=== PATIENT | male | born 1945 | race Caucasian/White ===

== ENCOUNTER 2018-04-16 12:02 | Inpatient (IN) ==
[2018-04-16] MEDS ORDERED: MORPHINE 4 MG/1 ML VIAL IV PRN (22:14)
[2018-04-16] MEDS ORDERED: DEXTROSE 50% 25 GM/50 ML SYRINGE IV PRN (22:14)
[2018-04-16] MEDS ORDERED: GLUCAGON 1 MG VIAL IM PRN (22:14)
[2018-04-16] MEDS ORDERED: ONDANSETRON 4 MG/2 ML VIAL IV PRN (22:14)
[2018-04-16] MEDS ORDERED: ACETAMINOPHEN 325 MG TABLET PO PRN (22:14)
[2018-04-16 23:20] LABS: Basophils # 0.1 10*3/uL (0.0-0.2); Basophils % 0.2 % (0.0-0.8); Eosinophils # 0.1 10*3/uL (0.0-0.87); Eosinophils % 0.2 % (0.00-10.9); Hematocrit 36.2 VOL% (42.0-52.0); Hemoglobin 11.5 GM/DL (14.0-18.0); Immature Granulocytes % 2.4 %; Immature Granulocytes Absolute 0.52 #; Lymphocytes % 4.5 % (21.2-54.2); Mean Corpuscular HGB Conc 31.8 GM/DL (32-36); Mean Corpuscular Hemoglobin 31 PG (27-34); Mean Platelet Volume 11.5 FL (9.6-12.0); Monocytes # 1.5 10*3/uL (0.11-0.8); Monocytes % 6.6 % (1.7-12.7); Neutrophils # 18.8 10*3/uL (1.4-7.4); Neutrophils % 86.1 % (38.7-73.9); Platelet Count 295 T/CUMM (130-400); Red Blood Count 3.77 MC/CUMM (3.8-5.5); Red Cell Distribution Width 14.8 % (9.3-17.3); White Blood Count 21.9 T/CUMM (4-12)
[2018-04-16 23:29] LABS: INR 1.1; PT Patient Result 11.4 SECS; Partial Thromboplastin Time 29.6 SECS (0-40)
[2018-04-16 23:46] LABS: Lymphocytes 3 % (20-55); Segmented Neutrophils 85 % (50-85)
[2018-04-16 23:47] LABS: Albumin 2.5 G/DL (3.4-5.0); Bilirubin,Total 0.8 MG/DL (0.2-1.0); Calcium 8.5 MG/DL (8.5-10.1); Osmolality,Calculated 297.4 MOS/KG (273-304); Potassium 4.4 MMOL/L (3.5-5.1); Total Protein 6.7 G/DL (6.4-8.3)
[2018-04-16 23:49] LABS: Platelet Estimate Normal
[2018-04-16 23:50] LABS: Total Cells Counted 100
[2018-04-17] LABS: Amylase 83 U/L (25-115)
[2018-04-17 00:02] LABS: Troponin I 0.133 NG/ML (0.00-0.045)
[2018-04-17] MEDS: SODIUM CHLORIDE 0.9% 1,000 ML IV SCH ×2 (00:16→12:59)
[2018-04-17] MEDS: LEVOFLOXACIN INJ 750 MG in PREMIX 1 EACH IV SCH ×2 (00:16→23:50)
[2018-04-17] MEDS: ALBUTEROL/IPRATROPIUM 3 ML NEB RESP TX SCH ×7 (00:28→22:26)
[2018-04-17] MEDS: INSULIN REGULAR 100 UNIT/ML SUBCUT SCH ×4 (01:18→18:16)
[2018-04-17 05:06] LABS: Troponin I 0.144 NG/ML (0.00-0.045)
[2018-04-17] MEDS: ENOXAPARIN 40 MG/0.4 ML SYRINGE SUBCUT SCH (09:52)
[2018-04-17 11:26] LABS: Allen Test Positive
[2018-04-17 11:27] LABS: ABG Base Excess 0.3 MMOL/L (-2.5-2.5); ABG HCO3 24.6 MMOL/L (20-26); ABG Oxygen Saturation 95.2 % (95-100); ABG PCO2 38.4 MM HG (35-48); ABG PH 7.415 (7.35-7.45); ABG PO2 76.8 MM HG (80-95); ABG TCO2 21.7 MMOL/L (23-27)
[2018-04-17 11:59] LABS: Apearance,Urine CLEAR (Clear); Bilirubin,Urine Negative (Negative); Blood, Urine Moderate mg/dL (Negative); Glucose,Urine (UA) >=500 mg/dL (Negative); Ketones,Urine 5 mg/dL (Negative); Nitrite,Urine Negative (Negative); Protein,Urine 100 MG/DL; RBC,Urine 1 /HPF (0-4); Urine Color Yellow (Yellow); Urine Specific Gravity 1.032 (1.001-1.035); Urine Urobilinogen < 2.0 EU/DL (0.2-1.0); WBC,Urine <1 /HPF (0-6)
[2018-04-17] MEDS: ASPIRIN 300 MG SUPP RECTAL SCH (12:45)
[2018-04-17] MEDS: methylPREDNISolone SOD SUC 40 MG/1 ML VIAL IV SCH ×2 (12:46→18:17)
[2018-04-17] MEDS: METOPROLOL TARTRATE 5 MG/5 ML VIAL IV SCH ×3 (12:46→18:17)
[2018-04-17] MEDS: INSULIN GLARGINE 100 UNIT/ML SUBCUT SCH ×2 (18:15→22:18)
[2018-04-17] MEDS: PANTOPRAZOLE 40 MG VIAL IV SCH (22:15)
[2018-04-18] MEDS: METOPROLOL TARTRATE 5 MG/5 ML VIAL IV SCH ×4 (01:10→17:55)
[2018-04-18] MEDS: INSULIN REGULAR 100 UNIT/ML SUBCUT SCH ×4 (01:35→17:54)
[2018-04-18] MEDS: ALBUTEROL/IPRATROPIUM 3 ML NEB RESP TX SCH ×6 (03:12→23:43)
[2018-04-18] MEDS: methylPREDNISolone SOD SUC 40 MG/1 ML VIAL IV SCH ×3 (03:40→18:36)
[2018-04-18] MEDS: SODIUM CHLORIDE 0.9% 1,000 ML IV SCH ×2 (04:50→17:53)
[2018-04-18 05:29] LABS: Basophils % 0.2 % (0.0-0.8); Hematocrit 34.8 VOL% (42.0-52.0); Hemoglobin 10.6 GM/DL (14.0-18.0); Immature Granulocytes % 1.9 %; Immature Granulocytes Absolute 0.37 #; Lymphocytes # 0.8 10*3/uL (1.4-4.0); Mean Corpuscular HGB Conc 30.5 GM/DL (32-36); Mean Corpuscular Hemoglobin 30 PG (27-34); Mean Platelet Volume 11.3 FL (9.6-12.0); Monocytes # 0.9 10*3/uL (0.11-0.8); Monocytes % 4.4 % (1.7-12.7); Neutrophils # 17.5 10*3/uL (1.4-7.4); Neutrophils % 89.5 % (38.7-73.9); Platelet Count 309 T/CUMM (130-400); Red Blood Count 3.55 MC/CUMM (3.8-5.5); Red Cell Distribution Width 15.4 % (9.3-17.3); White Blood Count 19.6 T/CUMM (4-12)
[2018-04-18 05:49] LABS: Calcium 8.5 MG/DL (8.5-10.1); Osmolality,Calculated 308.7 MOS/KG (273-304); Potassium 4.7 MMOL/L (3.5-5.1)
[2018-04-18 05:51] LABS: Calcium 8.3 MG/DL (8.5-10.1); Osmolality,Calculated 312.4 MOS/KG (273-304); Potassium 4.9 MMOL/L (3.5-5.1)
[2018-04-18 06:11] LABS: Band Neutrophils 1 % (0-10); Lymphocytes 4 % (20-55); Macrocytosis Slight; Segmented Neutrophils 92 % (50-85); Total Cells Counted 100
[2018-04-18] MEDS: PANTOPRAZOLE 40 MG VIAL IV SCH ×2 (08:57→22:00)
[2018-04-18] MEDS: ENOXAPARIN 40 MG/0.4 ML SYRINGE SUBCUT SCH (08:57)
[2018-04-18] MEDS: ASPIRIN 300 MG SUPP RECTAL SCH (08:57)
[2018-04-18] MEDS: SODIUM CHLORIDE 0.45% 1,000 ML IV SCH (17:52)
[2018-04-18] MEDS ORDERED: DIVALPROEX ER 500 MG TABLET PO SCH (21:00)
[2018-04-18] MEDS: INSULIN GLARGINE 100 UNIT/ML SUBCUT SCH (21:59)
[2018-04-18] MEDS: LEVOFLOXACIN INJ 750 MG in PREMIX 1 EACH IV SCH (23:55)
[2018-04-19] MEDS: INSULIN REGULAR 100 UNIT/ML SUBCUT SCH ×4 (00:15→18:02)
[2018-04-19] MEDS: ALBUTEROL/IPRATROPIUM 3 ML NEB RESP TX SCH ×5 (03:28→20:21)
[2018-04-19] MEDS: methylPREDNISolone SOD SUC 40 MG/1 ML VIAL IV SCH ×3 (03:50→18:03)
[2018-04-19 04:43] LABS: Basophils % 0.1 % (0.0-0.8); Hematocrit 33.9 VOL% (42.0-52.0); Hemoglobin 10.4 GM/DL (14.0-18.0); Immature Granulocytes % 1.5 %; Immature Granulocytes Absolute 0.27 #; Lymphocytes % 5.6 % (21.2-54.2); Mean Corpuscular HGB Conc 30.7 GM/DL (32-36); Mean Corpuscular Hemoglobin 30 PG (27-34); Mean Platelet Volume 11.3 FL (9.6-12.0); Monocytes # 1.3 10*3/uL (0.11-0.8); Monocytes % 7.2 % (1.7-12.7); Neutrophils # 15.6 10*3/uL (1.4-7.4); Neutrophils % 85.6 % (38.7-73.9); Platelet Count 341 T/CUMM (130-400); Red Blood Count 3.46 MC/CUMM (3.8-5.5); Red Cell Distribution Width 15.6 % (9.3-17.3); White Blood Count 18.2 T/CUMM (4-12)
[2018-04-19 05:06] LABS: Calcium 8.4 MG/DL (8.5-10.1); Osmolality,Calculated 313.4 MOS/KG (273-304); Potassium 4.3 MMOL/L (3.5-5.1)
[2018-04-19 05:25] LABS: Alanine Aminotransferase 42 U/L (16-61); Albumin 2.4 G/DL (3.4-5.0); Alkaline Phosphatase 68 U/L (45-117); Aspartate Amino Transferase 43 U/L (0-37); Bilirubin,Total < 0.39 MG/DL (0.2-1.0); Blood Urea Nitrogen 41 MG/DL (7-18); Calcium 8.2 MG/DL (8.5-10.1); Glucose 303 MG/DL (74-106); Osmolality,Calculated 314.3 MOS/KG (273-304); Potassium 5.1 MMOL/L (3.5-5.1); Sodium 148 MMOL/L (136-145)
[2018-04-19] MEDS: SODIUM CHLORIDE 0.45% 1,000 ML IV SCH ×2 (05:50→15:59)
[2018-04-19] MEDS: METOPROLOL TARTRATE 5 MG/5 ML VIAL IV SCH ×4 (05:51→18:02)
[2018-04-19] MEDS: PANTOPRAZOLE 40 MG VIAL IV SCH ×2 (09:12→21:50)
[2018-04-19] MEDS: ASPIRIN 300 MG SUPP RECTAL SCH (09:12)
[2018-04-19] MEDS: ACETAMINOPHEN 650 MG SUPP RECTAL PRN (12:31)
[2018-04-19] MEDS ORDERED: VALPROIC ACID INJ 500 MG in SODIUM CHLORIDE 0.9% 100 ML IV ONE (13:00)
[2018-04-19] MEDS: INSULIN GLARGINE 100 UNIT/ML SUBCUT SCH (21:53)
[2018-04-19] MEDS: VALPROIC ACID INJ 250 MG in SODIUM CHLORIDE 0.9% 100 ML IV SCH (21:53)
[2018-04-20] MEDS: ALBUTEROL/IPRATROPIUM 3 ML NEB RESP TX SCH ×6 (00:06→18:55)
[2018-04-20] MEDS: METOPROLOL TARTRATE 5 MG/5 ML VIAL IV SCH ×4 (00:38→19:18)
[2018-04-20] MEDS: LEVOFLOXACIN INJ 750 MG in PREMIX 1 EACH IV SCH ×2 (00:40→23:07)
[2018-04-20] MEDS: INSULIN REGULAR 100 UNIT/ML SUBCUT SCH ×5 (01:45→23:06)
[2018-04-20] MEDS: SODIUM CHLORIDE 0.45% 1,000 ML IV SCH ×3 (02:00→22:52)
[2018-04-20] MEDS: methylPREDNISolone SOD SUC 40 MG/1 ML VIAL IV SCH ×3 (03:50→19:16)
[2018-04-20 04:43] LABS: Calcium 8.1 MG/DL (8.5-10.1); Osmolality,Calculated 306.6 MOS/KG (273-304); Potassium 4.3 MMOL/L (3.5-5.1); Prealbumin 13.4 MG/DL (20-40)
[2018-04-20] MEDS ORDERED: ceFAZolin 1,000 MG in SYRINGE 1 EACH IV ONE (06:00)
[2018-04-20] MEDS: VALPROIC ACID INJ 250 MG in SODIUM CHLORIDE 0.9% 100 ML IV SCH ×3 (06:00→20:18)
[2018-04-20] MEDS ORDERED: MIDAZOLAM 2 MG/2 ML VIAL ONE (09:22)
[2018-04-20] MEDS ORDERED: PROPOFOL 200 MG/20 ML VIAL IV ONE (10:00)
[2018-04-20] MEDS ORDERED: LIDOCAINE 2% 5 ML VIAL ONE (10:00)
[2018-04-20] MEDS ORDERED: ETOMIDATE 20 MG/10 ML VIAL IV ONE (10:00)
[2018-04-20] MEDS: PANTOPRAZOLE 40 MG VIAL IV SCH ×2 (10:56→20:17)
[2018-04-20] MEDS: ASPIRIN 300 MG SUPP RECTAL SCH (11:37)
[2018-04-20] MEDS: INSULIN GLARGINE 100 UNIT/ML SUBCUT SCH (23:07)
[2018-04-21] MEDS: ALBUTEROL/IPRATROPIUM 3 ML NEB RESP TX SCH ×6 (00:29→19:58)
[2018-04-21] MEDS: METOPROLOL TARTRATE 5 MG/5 ML VIAL IV SCH ×3 (00:50→11:58)
[2018-04-21] MEDS: methylPREDNISolone SOD SUC 40 MG/1 ML VIAL IV SCH ×3 (03:51→21:37)
[2018-04-21 03:52] LABS: Basophils % 0.1 % (0.0-0.8); Hematocrit 32.8 VOL% (42.0-52.0); Hemoglobin 10.5 GM/DL (14.0-18.0); Immature Granulocytes % 1.4 %; Immature Granulocytes Absolute 0.19 #; Lymphocytes # 0.7 10*3/uL (1.4-4.0); Lymphocytes % 5.4 % (21.2-54.2); Mean Corpuscular Hemoglobin 31 PG (27-34); Mean Corpuscular Volume 95.3 FL (87-102); Mean Platelet Volume 10.7 FL (9.6-12.0); Monocytes # 0.9 10*3/uL (0.11-0.8); Monocytes % 6.4 % (1.7-12.7); Neutrophils # 11.8 10*3/uL (1.4-7.4); Neutrophils % 86.7 % (38.7-73.9); Platelet Count 304 T/CUMM (130-400); Red Blood Count 3.44 MC/CUMM (3.8-5.5); White Blood Count 13.6 T/CUMM (4-12)
[2018-04-21 04:21] LABS: Calcium 8.1 MG/DL (8.5-10.1); Potassium 4.6 MMOL/L (3.5-5.1)
[2018-04-21 04:26] LABS: Potassium 4.5 MMOL/L (3.5-5.1); Prealbumin 17.1 MG/DL (20-40)
[2018-04-21] MEDS: INSULIN REGULAR 100 UNIT/ML SUBCUT SCH ×3 (05:42→18:43)
[2018-04-21] MEDS: SODIUM CHLORIDE 0.45% 1,000 ML IV SCH ×2 (05:53→18:45)
[2018-04-21] MEDS: VALPROIC ACID INJ 250 MG in SODIUM CHLORIDE 0.9% 100 ML IV SCH ×3 (06:00→21:33)
[2018-04-21] MEDS: ACETAMINOPHEN 650 MG SUPP RECTAL PRN (08:35)
[2018-04-21] MEDS: PANTOPRAZOLE 40 MG VIAL IV SCH ×2 (09:04→21:34)
[2018-04-21] MEDS: ASPIRIN 300 MG SUPP RECTAL SCH (09:08)
[2018-04-21] MEDS: LOSARTAN 25 MG TABLET PO SCH (17:30)
[2018-04-21] MEDS ORDERED: SIMVASTATIN 40 MG TABLET PO SCH (21:00)
[2018-04-21] MEDS: INSULIN GLARGINE 100 UNIT/ML SUBCUT SCH (21:38)
[2018-04-21] MEDS: METOPROLOL TARTRATE 25 MG TABLET PO SCH (21:39)
[2018-04-21] MEDS: LEVOFLOXACIN INJ 750 MG in PREMIX 1 EACH IV SCH (23:40)
[2018-04-22] MEDS: ALBUTEROL/IPRATROPIUM 3 ML NEB RESP TX SCH ×5 (00:15→14:00)
[2018-04-22] MEDS: INSULIN REGULAR 100 UNIT/ML SUBCUT SCH ×3 (01:45→12:14)
[2018-04-22] MEDS: methylPREDNISolone SOD SUC 40 MG/1 ML VIAL IV SCH ×2 (03:40→12:15)
[2018-04-22 04:36] LABS: Basophils % 0.2 % (0.0-0.8); Hematocrit 32.3 VOL% (42.0-52.0); Hemoglobin 10.4 GM/DL (14.0-18.0); Immature Granulocytes % 2.1 %; Immature Granulocytes Absolute 0.33 #; Lymphocytes # 0.7 10*3/uL (1.4-4.0); Lymphocytes % 4.2 % (21.2-54.2); Mean Corpuscular HGB Conc 32.2 GM/DL (32-36); Mean Corpuscular Hemoglobin 30 PG (27-34); Mean Corpuscular Volume 93.4 FL (87-102); Mean Platelet Volume 10.9 FL (9.6-12.0); Monocytes # 0.8 10*3/uL (0.11-0.8); Monocytes % 5.2 % (1.7-12.7); NRBC # 0.02 10*3/uL; Neutrophils % 88.3 % (38.7-73.9); Platelet Count 295 T/CUMM (130-400); Red Blood Count 3.46 MC/CUMM (3.8-5.5); Red Cell Distribution Width 14.6 % (9.3-17.3); White Blood Count 15.9 T/CUMM (4-12)
[2018-04-22 04:54] LABS: Osmolality,Calculated 289.5 MOS/KG (273-304); Potassium 4.5 MMOL/L (3.5-5.1)
[2018-04-22 04:58] LABS: Hypochromasia 1+; Lymphocytes 5 % (20-55); Ovalocytes Slight; Platelet Estimate Adequate; Segmented Neutrophils 93 % (50-85); Total Cells Counted 100
[2018-04-22] MEDS: VALPROIC ACID INJ 250 MG in SODIUM CHLORIDE 0.9% 100 ML IV SCH ×2 (05:07→14:20)
[2018-04-22] MEDS: SODIUM CHLORIDE 0.45% 1,000 ML IV SCH ×2 (06:50→12:28)
[2018-04-22] MEDS ORDERED: ASPIRIN EC 81 MG TABLET PO SCH (09:00)
[2018-04-22] MEDS: PANTOPRAZOLE 40 MG VIAL IV SCH (09:11)
[2018-04-22] MEDS: ENOXAPARIN 40 MG/0.4 ML SYRINGE SUBCUT SCH (09:11)
[2018-04-22] MEDS: METOPROLOL TARTRATE 25 MG TABLET PO SCH (09:12)
[2018-04-22] MEDS: LOSARTAN 25 MG TABLET PO SCH (09:12)
[2018-04-22 16:14] VITALS: BP 124/49
== END 2018-04-22 17:38 | DRG 191 ==
LOC: SUATTDRO 20:57 → N.4E 20:57 → N.TELEN 04-17 02:08
PROVIDERS: ADMIT Internal Medicine; ATTEND Internal Medicine
PROC: EGDWPEG (ICD-10-PCS; 2018-04-20 12:20)